=== PATIENT | female | born 1995 | race Caucasian/White ===

== ENCOUNTER 2022-03-10 21:14 | Emergency (ER) | payer OTHER ==
[2022-03-10 22:43] LABS: BILIRUBIN NEGATIVE (NEGATIVE); BLOOD 3+ Ery/uL (NEGATIVE); CLARITY CLEAR (CLEAR); COLOR YELLOW (YELLOW); GLUCOSE (U) NORMAL (NORMAL); LEUKOCYTES 1+ Leu/uL (NEGATIVE); NITRITE NEGATIVE (NEGATIVE); PROTEIN 1+ mg/dL (NEGATIVE); SPECIFIC GRAVITY 1.025 (1.001-1.030); UROBILINOGEN 0.2 mg/dL (0.2-1.0)
[2022-03-10 22:50] LABS: URINARY RBC TNTC
[2022-03-10 22:52] LABS: YEAST PRESENT
[2022-03-10 22:53] LABS: URINARY WBC TNTC
[2022-03-10 22:54] LABS: BACTERIA 1+
[2022-03-10] MEDS ORDERED: BACTRIM DS TAB1 EACH PO (23:09)
[2022-03-10] MEDS ORDERED: PYRIDIUM100 MG PO (23:09)
== END 2022-03-10 23:23 | disposition home or self-care (01) ==
LOC: FER 21:14
PROVIDERS: Nurse Practitioner Family
DX: N39.0 Urinary tract infection, site not specified (principal); Z88.0 Allergy status to penicillin
CPT/HCPCS: 81001; 99283